=== PATIENT | male | born 1965 | race Caucasian/White ===

== ENCOUNTER → 2022-07-15 | Outpatient (CLI) | payer BC | END | disposition home or self-care (01) | LOC: LAB 10:30 → LAB SHORT 10:30 | DX: J03.91 Acute recurrent tonsillitis, unspecified (principal) | CPT/HCPCS: 87081 ==

== ENCOUNTER 2022-09-18 16:29 | Emergency (ER) | payer BC ==
[~2022-09-18] VITALS: Ht 190.5 cm; Wt 127.0 kg
[2022-09-18 17:04] LABS: Hematocrit 54.1 % (37.0-53.0); Hemoglobin 18.3 g/dL (13.5-17.5); Mean Corpuscular HGB 31.4 pg (26.0-34.0); Mean Corpuscular HGB Conc 33.8 g/dL (31.5-36.5); Mean Corpuscular Volume 93 fL (80-100); Mean Platelet Volume 10.2 fL (9.1-12.4); Platelet Count 288 K/mm3 (150-400); RDW Coefficient Variation 12.6 % (11.7-14.2); Red Blood Cell Count 5.82 M/mm3 (4.30-5.90)
[2022-09-18 17:07] LABS: White Blood Cell Count 17.25 K/mm3 (4.00-11.30)
[2022-09-18 17:29] LABS: Albumin, Blood 4.1 g/dL (3.4-5.0); Albumin/Globulin Ratio 0.9 (0.8-1.8); Bilirubin, Total 0.6 mg/dL (0.1-1.0); Bun/Creatinine Ratio 16.3 (12.0-20.0); Calcium, Blood 9.4 mg/dL (8.5-10.1); Creatinine, Blood 0.8 mg/dL (0.60-1.20); Globulin, Blood 4.5 g/dL (2.2-4.0); Potassium, Blood 4.3 mmol/L (3.5-5.5); Total Protein, Blood 8.6 g/dL (6.4-8.2)
[2022-09-18 17:30] LABS: BAND PERCENT MAN 4 % (0-8); BASOPHILS PERCENT MAN 0 % (0-2); EOSINOPHILS ABSOLUTE MAN 0.34 K/mm3 (0.00-0.68); EOSINOPHILS PERCENT MAN 2 % (0-6); LYMPHOCYTES ABSOLUTE MAN 3.27 K/mm3 (0.84-5.20); LYMPHOCYTES PERCENT MAN 19 % (21-46); MONOCYTES PERCENT MAN 7 % (4-13); NEUTROPHILS ABSOLUTE MAN 12.42 K/mm3 (1.96-9.15); SEG NEUTROPHILS PERCENT MAN 68 % (41-73); TOTAL CELLS COUNTED 100
[2022-09-19] MEDS ORDERED: AMOX-CLAV 875-1 EACH PO (00:18)
[2022-09-19] MEDS ORDERED: OZEMPIC0.25 MG/0. SQ (00:48)
[2022-09-19] MEDS ORDERED: ZOLOFT50 MG PO (00:48)
[2022-09-19] MEDS ORDERED: METFORMIN HCL500 M2 PO (00:48)
[2022-09-19] MEDS ORDERED: LOSA50 PO (00:49)
[2022-09-19] MEDS ORDERED: Chantix1 MG PO (00:49)
[2022-09-19] MEDS ORDERED: ATOR10 PO (00:50)
== END 2022-09-19 00:50 | disposition home or self-care (01) ==
LOC: ER 16:29
PROVIDERS: Physician Assistant
DX: J36 Peritonsillar abscess (principal); I10 Essential (primary) hypertension
CPT/HCPCS: 36415; 42700; 70491; 80053; 85025; 96365-59; 96375-59; 99284-25; A9270; J0295; J1100; J7030; Q9967

== ENCOUNTER 2023-01-21 10:00 | Day surgery (SDC) | payer BC ==
[~2023-01-21] VITALS: Ht 188 cm; Wt 125.7 kg
[~2023-01-21 10:00] MED LIST: AMOX-CLAV 875-1 EACH PO; ASPI81CH PO; ATOR10 PO; BUSP10 PO; Chantix1 MG PO; LOSA50 PO; METFORMIN HCL500 M2 PO; OZEMPIC0.25 MG/0. SQ; ZOLOFT50 MG PO
[2023-01-21 11:15] VITALS: BP 161/91
--- NOTE | 2023-01-21 11:39 | NUR ---
01/21/23 [address] PENA, SEE ANESTHESIA RECORDS.
--- NOTE | 2023-01-21 11:40 | NUR ---
Ambulatory in Day SurgeryPatient states colon prep results clear. History, Chart, Medications and Allergies reviewed before start of procedure.Lungs clear T/O to Auscultation. Pre-Op teaching done. Pt verbalizes understanding. Patient States Post-Procedure ride home has been arranged.
[2023-01-21 12:15] VITALS: BP 122/93
[2023-01-21 12:30] VITALS: BP 134/74
[2023-01-21 12:44] VITALS: BP 144/84
--- NOTE | 2023-01-21 12:45 | NUR ---
Patient up to Ambulate independently. Gait steady.STAND BY ASSIST DUE TO INCREASED RISK FOR FALL RELATED TO SEDATION. Discharge instructions reviewed with patient. Patient verbalizes understanding. Copy given to patient to take home.PT WILL CALL UPON ARRIVAL APPROXIMATELY 10-15 MINUTES.
--- NOTE | 2023-01-21 13:15 | NUR ---
PT AMBULATORY AT DISCHARGE WITH RN STAND BY ASSIST TO PRIVATE VEHICLE WITH 'S RETURNS SUPERVISOR.
== END 2023-01-21 13:10 | disposition home or self-care (01) ==
LOC: ORSCMMR 10:00 → ORD 11:30 → ORSCMMR 11:30
PROVIDERS: Surgery
PROC: 0DBN8ZX Excision of Sigmoid Colon, Via Natural or Artificial Opening Endoscopic, Diagnostic (ICD-10-PCS; principal; 2023-01-21 12:30)
PROC: 0DBL8ZX Excision of Transverse Colon, Via Natural or Artificial Opening Endoscopic, Diagnostic (ICD-10-PCS; principal; 2023-01-21 12:30)
DX: Z12.11 Encounter for screening for malignant neoplasm of colon (principal); D12.5 Benign neoplasm of sigmoid colon; K63.5 Polyp of colon; K57.30 Diverticulosis of large intestine without perforation or abscess without bleeding; G47.33 Obstructive sleep apnea (adult) (pediatric); I10 Essential (primary) hypertension; I25.10 Atherosclerotic heart disease of native coronary artery without angina pectoris; E78.5 Hyperlipidemia, unspecified; F17.210 Nicotine dependence, cigarettes, uncomplicated; E11.9 Type 2 diabetes mellitus without complications; Z79.84 Long term (current) use of oral hypoglycemic drugs; Z79.899 Other long term (current) drug therapy; Z79.82 Long term (current) use of aspirin
CPT/HCPCS: 88305; J2704; J7120